=== PATIENT | male | born 1965 | race Hispanic/Latino ===

== ENCOUNTER 2017-11-09 07:17 | Emergency (ER) | payer OTHER ==
[2017-11-09 07:38] VITALS: TEMP 97.9; BMI 33.0
[2017-11-09] MEDS ORDERED: Amoxicillin-Clav 875-125 mg Tab PO STA (07:44)
--- NOTE | 2017-11-09 07:48 | ED PDOC ---
Arrival/HPI - General Chief Complaint: Abnormal Skin Integrity Time Seen by Provider: 11/09/17 07:36 Historian: Patient - History of Present Illness Time/Duration: Other (Last night) Symptom Onset: Gradual Symptom Course: Worsening Severity Level: Mild Activities at Onset: Rest Associated Symptoms (Text): 11/09/17 07:45 Patient reports he nicked his right lower lateral lip while shaving 2 days ago. Last night he developed a small abscess with lip swelling. Became worse overnight. No fever. No toothache. Past Medical History - Cardiac Hx Cardiac Disorders: Yes Hx Hypertension: Yes Hx Pacemaker: No - Pulmonary Hx Respiratory Disorders: No - Neurological Hx Neurological Disorder: Yes HX Cerebrovascular Accident: Yes (10/2009) - HEENT Hx HEENT Disorder: No - Renal Hx Renal Disorder: No - Endocrine/Metabolic Hx Endocrine Disorders: No - Hematological/Oncological Hx Blood Disorders: No Hx Blood Transfusions: No - Integumentary Hx Dermatological Disorder: No - Musculoskeletal/Rheumatological Hx Musculoskeletal Disorders: Yes (KNEES) - Gastrointestinal Hx Gastrointestinal Disorders: No - Genitourinary/Gynecological Hx Genitourinary Disorders: No - Psychiatric Hx Psychophysiologic Disorder: Yes Hx Bipolar Disorder: Yes Hx Depression: Yes Hx Emotional Abuse: No Hx Physical Abuse: No Hx Substance Use: No - Anesthesia Hx Anesthesia Reactions: No Hx Malignant Hyperthermia: No - Suicidal Assessment Feels Threatened In Home Enviroment: No Family/Social History - Physician Review Nursing Documentation Reviewed: Yes Family/Social History: Unknown Family HX Smoking Status: Never Smoked Hx Alcohol Use: Yes (OCCASSIONAL) Hx Substance Use: No Hx Substance Use Treatment: No Allergies/Home Meds Allergies/Adverse Reactions: Allergies No Known Allergies Allergy (Verified 11/09/17 07:36) Home Medications: Home Meds Medication Instructions Recorded Confirmed Esomeprazole Magnesium [Nexium] 20 mg PO DAILY 05/08/12 11/09/17 [place] Carbonate 600 mg PO BID 10/16/16 11/09/17 Rosuvastatin Calcium [Crestor] 20 mg PO DAILY 10/16/16 11/09/17 amLODIPine [Norvasc] 20 mg PO DAILY 10/16/16 11/09/17 Review of Systems - Physician Review All systems were reviewed & negative as marked: Yes Physical Exam Vital Signs Temp Pulse Resp BP Pulse Ox 11/09/17 07:37 97.9 F 67 18 151/89 H 98 Temperature: Afebrile Blood Pressure: Hypertensive Pulse: Regular Respiratory Rate: Normal Appearance: Positive for: Well-Appearing, Non-Toxic, Comfortable Pain Distress: None Mental Status: Positive for: Alert and Oriented X 3 - Systems Exam Mouth: Present: Moist Mucous Membranes, Normal Teeth Pharnyx: No: ERYTHEMA, EXUDATE, TONSILS ENLARGED Skin: Present: Warm, Dry, Normal Color, Abscess (Small right lower lateral lip abscess with lip swelling.). No: Rashes Disposition/Present on Arrival - Present on Arrival Any Indicators Present on Arrival: No History of DVT/PE: No History of Uncontrolled Diabetes: No Urinary Catheter: No History of Decub. Ulcer: No History Surgical Site Infection Following: None - Disposition Have Diagnosis and Disposition been Completed?: Yes Diagnosis: Abscess Disposition: HOME/ ROUTINE Disposition Time: 07:46 Patient Plan: Discharge Condition: GOOD Discharge Instructions (ExitCare): Boil, Skin Abscess Additional Instructions: Moist heat. Follow-up with PMD. Follow up in ER as needed. Abscess may need incision and drainage. Prescriptions: Amoxicillin/Clavulanate [Augmentin 875 MG-125 MG] 1 tab PO Q12 #20 tab
[2017-11-09 08:07] VITALS: BP 126/71; PULSE 68; RESP 16; O2SAT 99
== END 2017-11-09 08:07 | disposition home or self-care (01) ==
LOC: ED 07:17
DX: K13.0 Diseases of lips (principal); I10 Essential (primary) hypertension